=== PATIENT | female | born 1980 | race Caucasian/White ===

== ENCOUNTER 2024-09-06 15:20 | Emergency (ER) | payer SELFPAY ==
[2024-09-06] MEDS: Ibuprofen 600 MG Tab PO ONE (15:57)
[2024-09-06] MEDS: Acetaminophen 500 MG Tab PO ONE (15:57)
== END 2024-09-06 18:10 | disposition home or self-care (01) ==
LOC: MW.ED 15:20
DX: J10.1 Influenza due to other identified influenza virus with other respiratory manifestations (principal); I10 Essential (primary) hypertension; Z91.011 Allergy to milk products; Z79.899 Other long term (current) drug therapy
CPT/HCPCS: 87428; 99283; A9270